=== PATIENT | female | born 1990 | race Caucasian/White ===

== ENCOUNTER 2017-08-20 15:35 | Emergency (ER) | payer OTHER ==
[~2017-08-20] VITALS: Ht 160 cm; Wt 85.7 kg
[~2017-08-20 15:35] MED LIST: FERR325E14 PO; PREN-385 PO
[2017-08-20 15:53] VITALS: BP 126/75
--- NOTE | 2017-08-20 16:50 | NUR ---
PT PRESENTS TO ER W/C/O LEFT 5TH TOE PAIN SINCE THIS AM, S/P BUMPING ON CAR DOOR. AAOX4 WITH EVEN AND STEADY GAIT; LUNGS CLEAR BL; HR EVEN AND REGULAR; PT DENIES ANY FEVER, CP, SOB, OR COUGH AT THIS TIME; PATIENT STATES PAIN OF 8/10 AT THIS TIME; VSS; PATIENT POSITIONED FOR COMFORT; HOB ELEVATED; BEDRAILS UP X2; BED DOWN. ER MD MADE AWARE OF PT STATUS.
--- NOTE | 2017-08-20 17:01 | NUR ---
Patient being evaluated by DR COYNE at bedside.
--- NOTE | 2017-08-20 17:06 | NUR ---
ORTHO IMMOBILIZER DONE BY MURIEL BARRERA.
[2017-08-20 17:08] VITALS: BP 126/75
--- NOTE | 2017-08-20 17:08 | NUR ---
Patient discharged with v/s stable. Written and verbal after care instructions given and explained. Patient verbalized understanding. Ambulatory with steady gait. All questions addressed prior to discharge. Advised to follow up with PMD.
== END 2017-08-20 17:08 | disposition home or self-care (01) ==
LOC: MED 15:35
DX: S90.122A Contusion of left lesser toe(s) without damage to nail, initial encounter (principal); Z88.0 Allergy status to penicillin; Z86.2 Personal history of diseases of the blood and blood-forming organs and certain disorders involving the immune mechanism; W22.09XA Striking against other stationary object, initial encounter; Y93.89 Activity, other specified; Y92.89 Other specified places as the place of occurrence of the external cause; Y99.8 Other external cause status
CPT/HCPCS: 73660; 99284

== ENCOUNTER 2021-11-16 19:22 | Emergency (ER) | payer OTHER ==
[~2021-11-16] VITALS: Ht 165.1 cm; Wt 104.3 kg
[2021-11-16 19:25] VITALS: BP 144/73
--- NOTE | 2021-11-16 19:28 | NUR ---
TO LOBBY A/W BED AMBULATORY
[2021-11-16 19:30] VITALS: BP 144/73
[2021-11-16 21:28] LABS: APPEARANCE,URINE CLEAR (CLEAR); BILIRUBIN,URINE NEGATIVE (NEGATIVE); BLOOD, URINE 2+ (NEGATIVE); LEUKOCYTE ESTERASE ,URINE NEGATIVE (NEGATIVE); NITRITE, URINE NEGATIVE (NEGATIVE); UGLUCOSE NEGATIVE (NEGATIVE)
[2021-11-16 21:29] LABS: BASOPHILS % (AUTO) 0.1 % (0.0-2.0); EOSINOPHILS # (AUTO) 0.1 K/uL (0-0.4); EOSINOPHILS % (AUTO) 0.9 % (0.0-4.0); HEMATOCRIT 37.3 % (36-48); HEMOGLOBIN 12.6 g/dL (12.0-16.0); LYMPHOCYTES % (AUTO) 21.9 % (20.5-51.1); MEAN CORPUSCULAR HEMOGLOBIN 30 pg (27-31); MEAN CORPUSCULAR HGB CONC 34 g/dL (33-37); MEAN CORPUSCULAR VOLUME 89.8 fL (80-94); MONOCYTES # (AUTO) 0.6 K/uL (0.8-1.0); MONOCYTES % (AUTO) 7.1 % (1.7-9.3); NEUTROPHILS # (AUTO) 6.4 K/uL (1.8-7.7); PLATELET COUNT (AUTO) 262 K/uL (140-450); RED BLOOD CELL COUNT(AUTO) 4.16 MIL/uL (4.20-5.40); RED CELL DISTRIBUTION WIDTH 14.1 % (11.6-13.7); WHITE BLOOD COUNT (AUTO) 9.1 K/uL (4.8-10.8)
[2021-11-16 21:47] LABS: COLOR,URINE STRAW (YELLOW); RBC,URINE 0-5 /HPF (0-5); WBC,URINE 0-5 /HPF (0-5)
[2021-11-16 21:57] LABS: ANION GAP 11.9 (8-16); CREATININE 0.6 mg/dL (0.6-1.3); POTASSIUM 3.9 mmol/L (3.5-5.1); TOTAL BILIRUBIN 0.2 mg/dL (0.0-1.0)
--- NOTE | 2021-11-16 22:09 | NUR ---
Mike wilson in ED - 11/16/21 at 2355 by [facility] , NO RESPONSE PATIENT LEFT WITHOUT BEING SEEN BY DR. COSTA. NO FURTHER CARE PROVIDED FOR PATIENT.
--- NOTE | 2021-11-16 22:15 | NUR ---
Mike wilson in [facility] - 11/16/21 at 2355 by ADRIANNA CALLED FOR THE SECOND TIME , NO RESPONSE
--- NOTE | 2021-11-16 22:20 | NUR ---
Mike wilson in [facility] - 11/16/21 at 2355 by ADRIANNA CALLED FOR THE THIRD TIME , NO RESPONSE
--- NOTE | 2021-11-17 | NUR ---
all reults back and noted by ERMD and for d/c
[2021-11-17] MEDS ORDERED: NITR100C7 PO (00:08)
--- NOTE | 2021-11-17 00:10 | NUR ---
Patient discharged with v/s stable. Written and verbal after care instructions given and explained. Patient alert, oriented and verbalized understanding of instructions. Ambulatory with steady gait. All questions addressed prior to discharge. ID band removed. Patient advised to follow up with PMD. Rx of nitrofurantoin given. Patient educated on indication of medication including possible reaction and side effects. Opportunity to ask questions provided and answered.
== END 2021-11-16 22:09 | disposition home or self-care (01) ==
LOC: MED 19:22
DX: O20.8 Other hemorrhage in early pregnancy (principal); Z3A.18 18 weeks gestation of pregnancy; Z88.0 Allergy status to penicillin; Z79.899 Other long term (current) drug therapy
CPT/HCPCS: 36415; 76805; 80053; 81001; 84702; 85025; 86886; 86900; 86901; 99284; Q0092